=== PATIENT | female | born 1965 | race Caucasian/White ===

== ENCOUNTER → 2018-04-13 | Outpatient (REF) | payer OTHER ==
[~2018-04-13] MED LIST: AMOXICILLIN875 MG OR; HYDROCO/APAP1 TA9 PO; K-DUR/KLOR-CON10 MEQ OR; LAMICTAL100 MG OR; LAMICTAL100 MG PO; LAMICTAL200 MG PO; TRILEPTAL300 MG OR
== END | disposition home or self-care (01) ==
LOC: DI 12:40
PROVIDERS: ATTEND Orthopaedic Surgery
DX: S42.301D Unspecified fracture of shaft of humerus, right arm, subsequent encounter for fracture with routine healing (principal); Z98.890 Other specified postprocedural states

== ENCOUNTER 2019-01-31 17:32 | Emergency (ER) | payer OTHER ==
[~2019-01-31] VITALS: Ht 160 cm; Wt 90.0 kg
[2019-01-31] MEDS ORDERED: AMOXICILLIN875 MG PO (19:20)
[2019-01-31 19:33] VITALS: BP 134/83
== END 2019-01-31 19:33 | disposition home or self-care (01) ==
LOC: ED 17:32
DX: R50.9 Fever, unspecified (principal); J02.9 Acute pharyngitis, unspecified; Z86.011 Personal history of benign neoplasm of the brain

== ENCOUNTER 2019-02-02 21:09 | Emergency (ER) | payer OTHER ==
[~2019-02-02] VITALS: Ht 160 cm; Wt 94.1 kg
[~2019-02-02 21:09] MED LIST changes: +AMOXICILLIN875 MG PO
[2019-02-02 22:08] LABS: HEMATOCRIT 35.7 % (37.0-47.0); HEMOGLOBIN 11.2 g/dl (12.0-16.0); IMMATURE GRANULOCYTES 0.3 % (0.0-5.0); MEAN CELL VOLUME 84.4 fL CALC (80.0-100.0); MEAN CORPUSCULAR HGB 26.5 pG CALC (26.0-32.0); MEAN CORPUSCULAR HGB CONC 31.4 g/L CALC (32.0-36.0); RED BLOOD COUNT 4.23 mill/uL (4.20-5.60)
[2019-02-02] MEDS ORDERED: LIDOCAINE HCL VIS2 % PO (22:23)
[2019-02-02 23:15] VITALS: BP 128/77
== END 2019-02-02 23:15 | disposition home or self-care (01) ==
LOC: ED 21:09
PROVIDERS: Family Medicine
DX: J02.9 Acute pharyngitis, unspecified (principal)